=== PATIENT | female | born 1980 | race Two or more races ===

== ENCOUNTER 2016-08-08 15:59 | Emergency (ER) | payer BC, OTHER ==
[2016-08-08 16:11] VITALS: BP 140/78
[2016-08-08] MEDS ORDERED: ACETAMINOPHEN 325 MG TABLET PO ONE (16:17)
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
== END 2016-08-08 17:47 | disposition home or self-care (01) ==
LOC: ER 15:59
DX: S16.1XXA Strain of muscle, fascia and tendon at neck level, initial encounter (principal); M54.2 Cervicalgia; V87.7XXA Person injured in collision between other specified motor vehicles (traffic), initial encounter
CPT/HCPCS: 99283